=== PATIENT | female | born 1990 | race Caucasian/White ===

== ENCOUNTER → 2024-09-23 08:49 | Outpatient (REF) | payer OTHER, SELFPAY | LOC: HWRAD 08:49 | PROVIDERS: ATTENDING PHYSICIAN Advanced Practice Midwife | DX: R10.2 Pelvic and perineal pain (principal) | CPT/HCPCS: 76830; 76856 ==

== ENCOUNTER 2024-09-25 15:35 | Emergency (ER) | payer OTHER, SELFPAY ==
[2024-09-25 15:37] VITALS: BP 101/85
[2024-09-25 16:26] LABS: % Basophils 0.7 % (0-2); % Eosinophils 1.5 % (0-6); % Immature Granulocytes 0.2 % (0-0.5); % Lymphocytes 38.9 % (20.5-51.1); % Monocytes 9.8 % (1.7-9.3); % Neutrophils 48.9 % (42.2-75.2); Absolute Eosinophils 0.1 10^3/uL (0-0.7); Absolute Lymphocytes 2.4 10^3/uL (1.2-3.4); Absolute Monocytes 0.6 10^3/uL (0.1-0.6); Hematocrit 33.8 % (37.0-47.0); Hemoglobin 11.5 g/dL (12.0-16.0); Mean Corpuscular Hgb 28.3 pg (27.0-31.0); Mean Platelet Volume 10.5 fL (7.4-10.4); Nucleated Red Blood Cells % 0 %; Platelet Count 257 10^3/uL (130-400); Red Blood Cell Count 4.07 10^6/uL (4.20-5.40); Red Cell Dist. Width 15.3 % (11.5-14.5); White Blood Cell Count 6.1 10^3/uL (4.8-10.8)
[2024-09-25 16:41] LABS: HCG, Serum Qualitative Screen Negative
[2024-09-25 16:44] LABS: ALT (SGPT) 40 U/L (0-35); AST (SGOT) 37 U/L (14-36); Albumin 4.2 g/dl (3.5-5.0); Alkaline Phosphatase 67 U/L (38-126); Blood Urea Nitrogen 13 mg/dl (7-17); Calcium 9.1 mg/dl (8.4-10.2); Carbon Dioxide 24 mmol/L (22-30); Chloride 106 mmol/L (98-107); Glucose 98 mg/dl (70-99); Sodium 141 mmol/L (135-145); Total Bilirubin 0.2 mg/dl (0.2-1.3); Total Protein 7.1 g/dl (6.3-8.2); eGFR > 60.00
[2024-09-25 16:50] LABS: Troponin I < 0.012 ng/ml
--- NOTE | 2024-09-25 17:23 | ED.GENMED ---
History of Present Illness
General
Chief Complaint: Chest Problem
Time Seen by Provider: 09/25/24 17:22
History of Present Illness
History of Present Illness:
TIME OF INITIAL ENCOUNTER: 5:20 PM
HPI: The patient presents due to chest discomfort. She was at the gym, was getting off a leg machine and suddenly had chest pain described as pressure. This lasted for 1 minute. She had no other associated symptoms however she has been 'exhausted
related to poor sleep' due to young child. She also drinks a lot of caffeine.
EXAM:
GENERAL: Well appearing in no distress, very healthy in appearance, athletic build
HEENT: Moist oral mucosa
CARDIOVASCULAR: No murmurs, normal heart rate, regular rhythm, No chest wall tenderness
PULMONARY: No respiratory distress, breath sounds are clear and equal
ABDOMEN: Soft with no peritoneal signs, no tenderness
NEUROLOGIC: Excellent strength all extremities, no coordination deficits
PSYCHIATRIC: Appropriate mental status, normal insight and judgement
EXTREMITIES: Nontender, no edema, moves all extremities equally
SKIN: No rash, no lesions
NUMBER AND COMPLEXITY OF PROBLEMS ADDRESSED AT THE ENCOUNTER
� Chronic conditions affecting care: Other than plastic surgeries, no comorbidities, no diabetes, no high blood pressure, no hyperlipidemia, no family history of coronary disease
� Acute Exacerbation and/or Progression of Chronic Illness: This is an acute problem
� Differential Diagnosis includes: Musculoskeletal chest wall pain, anxiety, muscle spasm, highly doubt ACS, never had shortness of breath that would be consistent with PE
AMOUNT AND/OR COMPLEXITY OF DATA TO BE REVIEWED AND ANALYZED
� I performed an independent evaluation of and my interpretation is:
EKG:Sinus 62, normal axis, no acute ST abnormality
CT:
X-rays:
Laboratory Studies: Troponin less than 0.012, hCG negative, CBC and chemistries unremarkable except very mild anemia
Other:
� Review of other/old records: I reviewed records, the patient was here in July with her delivery
� Clinical information was obtained by an independent historian: I spoke to at bedside
� Prescriptions/Medications Considered but not given:
� Further testing considered but not performed:
RISK OF COMPLICATIONS AND/OR MORBIDITY OR MORTALITY OF PATIENT MANAGEMENT
� Social determinants of health affecting care: Lives at home
� Discussion with other providers:
� Escalation of care including admission/observation vs risk of discharge considered: EKG and troponin are normal. Minimal anemia noted but I doubt that this is contributing to exhaustion. She is very well-appearing. She has
had only 1 minute of symptoms earlier in the day and has had no symptoms since that time.
ANY OTHER UPDATES:
Phy Exam
Physical Exam
Physical Exam:
See HPI
Course
Orders/Labs/Results
Orders:
Orders
09/25/24 15:40
EKG [Electrocardiogram (*1)] Urgent
Reason for Study: Chest Pain
EKG- Treatment ONCE
09/25/24 16:07
Test Result ONCE
09/25/24 16:17
Complete Blood Count/With Diff Urgent
Comprehensive Metabolic Panel Urgent
HCG, Serum Qualitative Screen Urgent
Troponin I Urgent
Abnormal Lab Results
09/25/24
16:17
RBC 4.07 L 10^6/uL
(4.20-5.40)
Hgb 11.5 L g/dL
(12.0-16.0)
Hct 33.8 L %
(37.0-47.0)
RDW 15.3 H %
(11.5-14.5)
MPV 10.5 H fL
(7.4-10.4)
Monocytes % 9.8 H %
(1.7-9.3)
AST 37 H U/L
(14-36)
ALT 40 H U/L
(0-35)
09/25/24 16:17
09/25/24 16:17
Vital Signs
Initial and Last Documented VS:
Initial Vital Signs
Temp Pulse Resp BP Pulse Ox
98.2 F 67 16 101/85 100
09/25/24 15:37 09/25/24 15:37 09/25/24 15:37 09/25/24 15:37 09/25/24 15:37
Last Documented Vital Signs
Temp Pulse Resp BP Pulse Ox
98.2 F 67 16 101/85 100
09/25/24 15:37 09/25/24 15:37 09/25/24 15:37 09/25/24 15:37 09/25/24 15:37
*Critical Care Note
Total Time (30-74mins, 75-104mins- exclusive of procedures): Not Applicable
ED Attending Note
-
Portions of this chart may have been created with voice recognition software.� Occasional wrong word or��sound alike� substitutions may have occurred due to the inherent limitations of voice recognition software.
Discharge Plan
Departure
Patient Disposition: Home (Routine Discharge)
Date of Disposition: 09/25/24
Time of Disposition: 17:40
Patient with high blood pressure during this ER visit?: No
Discharge Problem:
Chest pain
Instructions: Chest Pain PCP Follow Up
Prescriptions:
No Action
Vitamin C:
1 tab PO DAILY
Vitamin D3 (cholecalciferol):
1 tab PO DAILY
Probiotic
250 tab PO ONCE
acetaminophen 325 mg Tablet
650 mg PO Q4HPRN PRN (Reason: mild pain) Qty: 20 0RF
ibuprofen 600 mg Tablet
600 mg PO Q6HPRN PRN (Reason: cramps) Qty: 20 0RF
Activity Restrictions/Additional Instructions:
Basic blood work is unremarkable, troponin is undetected, EKG is normal. Follow-up your primary care doctor
Interventions
Interventions:
*Risk Screen - Suicide Last Done: 09/25/24 15:37
*General Assessment Last Done: 09/25/24 15:37
*Neglect/Abuse Screening Last Done: 09/25/24 15:37
ED- Fall Risk Assessment Last Done: 09/25/24 17:44
*ED COVID-19 Vaccine History Last Done: 09/25/24 17:44
ED- Cardiac Assessment Last Done: 09/25/24 17:44
ED- Pulmonary Assessment Last Done: 09/25/24 17:44
Discharge Date and Time
Print Language: TANZANIAN
[2024-09-25 17:44] VITALS: BP 126/71; BMI 24.2
== END 2024-09-25 18:00 | disposition home or self-care (01) ==
LOC: EMR 15:35
PROVIDERS: EMERGENCY PHYSICIAN Emergency Medicine
DX: R07.89 Other chest pain (principal); D64.9 Anemia, unspecified
CPT/HCPCS: 99284; 80053; 84484; 84703; 85025; 93005

== ENCOUNTER → 2024-12-25 08:20 | Outpatient (REF) | payer OTHER, SELFPAY | LOC: HWRAD 08:20 | PROVIDERS: ATTENDING PHYSICIAN Advanced Practice Midwife; FAMILY PHYSICIAN Nurse Practitioner Primary Care | DX: N83.02 Follicular cyst of left ovary (principal) | CPT/HCPCS: 76830; 76856 ==

== ENCOUNTER → 2025-03-22 17:50 | Outpatient (REF) | payer OTHER, SELFPAY | LOC: RAD 17:50 | PROVIDERS: ATTENDING PHYSICIAN Obstetrics & Gynecology; FAMILY PHYSICIAN Nurse Practitioner Primary Care | DX: O26.851 Spotting complicating pregnancy, first trimester (principal) | CPT/HCPCS: 76801 ==

== ENCOUNTER 2025-03-26 12:45 | Day surgery (SDC) | payer OTHER, SELFPAY ==
[2025-03-26] VITALS (21 sets, daily range): BP systolic 87–101; BP diastolic 47–68; BMI 21.7
[2025-03-26 08:12] LABS: % Basophils 0.7 % (0-2); % Eosinophils 0.6 % (0-6); % Immature Granulocytes 0.1 % (0-0.5); % Lymphocytes 23.6 % (20.5-51.1); % Monocytes 9.9 % (1.7-9.3); % Neutrophils 65.1 % (42.2-75.2); Absolute Basophils 0.1 10^3/uL (0-0.2); Absolute Lymphocytes 1.6 10^3/uL (1.2-3.4); Absolute Monocytes 0.7 10^3/uL (0.1-0.6); Absolute Neutrophils 4.5 10^3/uL (1.4-6.5); Hematocrit 36.9 % (37.0-47.0); Hemoglobin 12.7 g/dL (12.0-16.0); Mean Corp Hgb Conc. 34.4 g/dL (33.0-37.0); Mean Corpuscular Hgb 29.7 pg (27.0-31.0); Mean Corpuscular Volume 86.4 fL (81.0-99.0); Mean Platelet Volume 10.3 fL (7.4-10.4); Nucleated Red Blood Cells % 0 %; Platelet Count 232 10^3/uL (130-400); Red Blood Cell Count 4.27 10^6/uL (4.20-5.40); Red Cell Dist. Width 13.9 % (11.5-14.5)
[2025-03-26 08:41] LABS: ALT (SGPT) 40 U/L (0-35); AST (SGOT) 28 U/L (14-36); Albumin 4.3 g/dl (3.5-5.0); Alkaline Phosphatase 69 U/L (38-126); Blood Urea Nitrogen 10 mg/dl (7-17); Calcium 8.9 mg/dl (8.4-10.2); Carbon Dioxide 21 mmol/L (22-30); Chloride 109 mmol/L (98-107); Estimated Creatinine Clearance 92 ml/min; Glucose 92 mg/dl (70-99); Potassium 4.4 mmol/L (3.5-5.1); Sodium 138 mmol/L (135-145); Total Bilirubin 0.7 mg/dl (0.2-1.3); eGFR > 60.00
--- NOTE | 2025-03-26 08:47 | ED.GENMED ---
History of Present Illness
General
Chief Complaint: Problems
Source: patient and spouse
Exam Limitations: none
Time Seen by Provider: 03/26/25 07:14
Nursing documentation reviewed up to this point in time: agreed with
History of Present Illness
History of Present Illness:
34-year-old female who presents to the emergency department due to vaginal bleeding since Saturday. She had blood work twice this week and showed her hCG levels were decreased. LMP February 08. She had an ultrasound that showed a gestational sac
without a visible fetus. This morning she may have passed out while going to the bathroom, and she had sharp pain.
Past History
Past History
ED Past Medical History: None
ED Past Surgical History: Other (Breast implants, reconstructive nasal surgery)
Social History
Tobacco: Non-smoker
Alcohol: None
Drug: None
Personal:
Living: with family
Review of Systems
Review of Systems
Allergies reviewed?: Yes
All Other Systems: Not applicable
Constitutional: Reports no symptoms
EENT: Reports no symptoms
Respiratory: Reports no symptoms
Cardiac: Reports syncope; Denies chest pain
ABD/GI: Reports no symptoms
: Reports bleeding (Vaginal) and other (Pelvic pain)
Musculoskeletal: Reports no symptoms
Skin: Reports no symptoms
Neurological: Reports no symptoms
Endocrine: Reports no symptoms
Hematologic/Lymphatic: Reports no symptoms
Psychiatric: Reports no symptoms
Phy Exam
Physical Exam
Physical Exam:
Physical Exam
General: no apparent distress, not acutely ill
Neck: supple. no meningeal signs. normal posterior pharynx
Heart: s1/s2 regular rate and rhythm, no murmur. equal radial
pulses.
HEENT: Pupils equal round reactive to light, EOMI
Lungs: no acute respiratory distress. clear bilaterally
Abdomen: normal bowel sounds. not tender. no CVAT
Neuro: alert and oriented. no focal neurological deficits
Skin: no rash
Psychiatric: well kept. interactive and cooperative
Extremities: no edema. no calf tenderness. negative homans. good distal pulses
Course
Orders/Labs/Results
Orders:
Orders
03/26/25 07:07
EKG [Electrocardiogram (*1)] Urgent
Reason for Study: Syncope
03/26/25 07:08
EKG- Treatment ONCE
03/26/25 07:16
US Transvaginal Only Urgent
Comment: for placement services
Reason For Exam: pelvic pain, bleeding, early
03/26/25 07:17
IV Insert/Care/Rem.- Treatment PRN
03/26/25 07:58
Beta HCG Quantitative Urgent
Is this a screen?: No
Complete Blood Count/With Diff Urgent
Comprehensive Metabolic Panel Urgent
03/26/25 Lunch
NPO
Allow oral meds: Yes
Allow clear liquids: No
03/26/25 12:11
HYDROmorphone [Dilaudid] 0.25 mg IV PACU-Q5MPRN PRN
HYDROmorphone [Dilaudid] 0.5 mg IV PACU-Q5MPRN PRN
Meperidine [Demerol] 12.5 mg IV PACU-Q5MPRN PRN
Ondansetron Injectable [Zofran] 4 mg IV PACU-ONCEPRN PRN
Prochlorperazine [Compazine] 5 mg IV PACU-ONCEPRN PRN
Notify MD As Directed
Notify physician if: for SDS patients with known or suspected sleep obstructive sleep apnea, monitor in the
PACU.
Notify MD for any apneic/desaturation episodes
O2 Therapy [RESP] Urgent
Titrate/Wean O2 to maintain O2 sat greater than (%): 92
Special Instructions: -Provide supplemental oxygen to achieve O2 sat of 92% or greater.
-After 15 min, may wean O2 and discontinue if patient is able to maintain O2 sat of 92%
or greater during recovery period.
If patient is a discharge home, without oxygen therapy, notify anestheiologist if
unable to maintain O2 SAT of 92% or greater on room air for MD clearance.
03/26/25 12:15
Normosol (Mult Electrolytes) [Normosol-R/Plasmalyte-A] 1,000 ml IV PER PROTOCOL
Normosol (Mult Electrolytes) [Normosol-R/Plasmalyte-A] 1,000 ml IV PER PROTOCOL
03/26/25 12:17
Doxycycline Hyclate [Vibramycin] 200 mg 0.9% Sodium Chloride 250 ml [Nss] 250 ml IV PRE OP
03/26/25 12:19
Fentanyl Citrate/Pf [Sublimaze] 100 mcg .ROUTE .STK-MED ONE
Midazolam HCl [Versed] 2 mg .ROUTE .STK-MED ONE
03/26/25 12:30
0.9% Sodium Chloride 1000 ml [Nss] 1,000 ml IV 125 mls/hr
03/26/25 12:46
HYDROmorphone [Dilaudid] 0.25 mg IV PACU-Q5MPRN PRN
HYDROmorphone [Dilaudid] 0.5 mg IV PACU-Q5MPRN PRN
Meperidine [Demerol] 12.5 mg IV PACU-Q5MPRN PRN
Ondansetron Injectable [Zofran] 4 mg IV PACU-ONCEPRN PRN
Prochlorperazine [Compazine] 5 mg IV PACU-ONCEPRN PRN
03/26/25 13:00
Flush (0.9% Sodium Chloride) [Flush (Nss)] See Dose Instructions IV PER PROTOCOL
03/26/25 13:03
OR Frozen Section Stat
Pre-Operative Diagnosis: OF UNKNOWN LOCATION
Operative Procedure: D&E
Surgeon: DEFOUR
Circulating Nurse: JULIUS
Type of Anesthesia: General
OR Room: [facility] - [phone]
Comment: PLEASE TIGER TEXT DEFOUR WITH RESULTS
Time: 13:05
Frozen Section: [employer]ION
03/26/25 13:09
Dexamethasone Sod Phosphate [Decadron] 20 mg .ROUTE .STK-MED ONE
Ondansetron Injectable [Zofran] 4 mg .ROUTE .STK-MED ONE
Propofol [Diprivan] 20 ml .ROUTE .STK-MED
03/26/25 13:10
Lidocaine HCl/Pf [Xylocaine-Mpf 1% Vial] 50 mg .ROUTE .STK-MED ONE
Abnormal Lab Results
03/26/25
07:58
Hct 36.9 L %
(37.0-47.0)
Absolute Monos (auto) 0.7 H 10^3/uL
(0.1-0.6)
Monocytes % 9.9 H %
(1.7-9.3)
Chloride 109 H mmol/L
(98-107)
Carbon Dioxide 21 L mmol/L
(22-30)
ALT 40 H U/L
(0-35)
03/26/25 07:58
03/26/25 07:58
Vital Signs
Initial and Last Documented VS:
Initial Vital Signs
Temp Pulse Resp BP Pulse Ox
98.3 F 73 16 101/68 98
03/26/25 07:03 03/26/25 07:03 03/26/25 07:03 03/26/25 07:03 03/26/25 07:03
Last Documented Vital Signs
Temp Pulse Resp BP Pulse Ox
98.2 F 69 14 90/51 100
03/26/25 13:15 03/26/25 13:19 03/26/25 13:19 03/26/25 13:19 03/26/25 13:19
Information
Weeks gestation: Weeks: (6)
Location: Location: (unclear if IUP vs ectopic)
MDM/Problems Addressed
Differential Diagnosis Includes:
Ectopic , missed
MDM/Problems Addressed:
34-year-old female with likely ectopic , taken to the OR by Dr. Dang. Stable.
*Radiology
Radiology exam reviewed: radiology read reviewed (Ultrasound pelvis shows possible ectopic )
*Pulse Oximetry
Patient hypoxic: no
*EKG
Interpreted by ED Provider?: Yes
EKG Intrepretation Date: 03/26/25
EKG Intrepretation Time: 07:10
Interpretation: normal
Comparison EKG: no comparison EKG present
Heart Rate: 62
Rate: normal
Rhythm: sinus
[place]: normal axis
Interval: normal interval
QRS Pattern: normal QRS
Ischemia: no ischemia
*Handle Sewer Interpretation
Rate: Handle Sewer- N/A
*Critical Care Note
Total Time (30-74mins, 75-104mins- exclusive of procedures): Not Applicable
Patient Management
Social determinants of health affecting care: Living situation
Discussion with other providers: Porcelain Enamel Repairer (KNOWLEDGE ARCHITECT)
Escalation/DeEscalation of care consider admission/obs:
admit to OR indicated
ED Attending Note
-
Portions of this chart may have been created with voice recognition software.� Occasional wrong word or��sound alike� substitutions may have occurred due to the inherent limitations of voice recognition software.
Discharge Plan
Departure
Patient Disposition: OR
Admit to: OR
Presentation/result/management discussed w/ accepting MD/DO: Dr. Dang
Patient with high blood pressure during this ER visit?: No
Condition: Good
Discharge Problem:
Ectopic
Interventions
Interventions:
*Risk Screen - Suicide Last Done: 03/26/25 07:03
*General Assessment Last Done: 03/26/25 07:56
*Neglect/Abuse Screening Last Done: 03/26/25 07:03
*ED- Fall Risk Assessment Last Done: 03/26/25 12:13
*Nursing Disposition Last Done: 03/26/25 12:13
ED-Female Genitourinary Assessment Last Done: 03/26/25 08:09
Discharge Date and Time
Discharge Date/Time: 03/26/25 12:14
[2025-03-26 09:21] LABS: Beta HCG Quantitative 69.69 mIU/ml
--- NOTE | 2025-03-26 11:55 | EDRN ---
Karol DeFour to bedside to speak with pt and her about their decision on plan of care. Will opt for the D & E and will remain NPO and wait for OR to call for pt. Fluids started.
[2025-03-26] MEDS: NORMOSOL-R/PLASMALYTE-A 1000 IV (14:23)
[2025-03-26] MEDS: METHOTREXATE 1.57 MG IM ×2 (15:27→15:30)
--- NOTE | 2025-03-26 22:16 | HP.FOC2 ---
Focused History & Physical
Chief Complaint
HPI:
Chief Complaint: Bleeding and Syncopal episode
HPI / Indication for Planned Procedure: 34yo who should be approx 7wks presented to the ER today with c/o increased VB and intense cramping/pain in the RLQ followed by a brief syncopal episode when she was on the toilet. She has a
h.o SAB and was being followed with HCGs in the office, she then noticed onset of bleeding on 03/22 and had an urgent outpatient US showing a tiny cystic structure in endometrium ?small GS. She was advised to continue to trend her HCG, which have
started to decrease however overnight she noticed increased bleeding and intense cramping she took ibuprofen and was able to fall asleep but at 530am says pain in the RLQ woke her up from sleep. She went to the bathroom to sit on the toilet and her
heard a thud and found her on the floor. Patient believes she fainted. They then presented to the hospital. No n/v. feels generally weak and dizzy. her pain has no resolved and has bloody mucous vaginal discharge
Relevant Past Medical History: Other (Depression)
Relevant Social History: Negative
Relevant Family History: Positive for (Paternal Aunt- Breast CA, Liver CA-MGF)
Relevant Past Surgical History: Positive for (Breast Implants, Nose reconstruction, C/S, D&E)
Review of Systems
Review of Pertinent Systems: All Systems Negative
Medication
See Medication form for detailed medications: Yes
Medication List (including Herbals & OTC):
Vitamin C: 1 tab PO DAILY 05/16/22
Vitamin D3 (cholecalciferol): 1 tab PO DAILY 05/16/22
Probiotic 250 tab PO ONCE 08/09/23
acetaminophen 325 mg tablet 650 mg (2 x 325 mg) PO Q4HPRN PRN mild pain #20 tabs 08/12/23
ibuprofen 600 mg tablet 600 mg PO Q6HPRN PRN cramps #20 tabs 08/12/23
Medications Reviewed: Yes
Allergies and Reactions
Patient has Allergies: No
Noted Allergies and Reactions:
Allergy/AdvReac Type Severity Reaction Status Date / Time
No Known Allergies Allergy Verified 03/26/25 07:03
Pertinent Physical Exam
All Other Systems: Negative
Abdomen: Normal (No r/g no significant ttp)
Other: SVE: no CMT, no adnexal masses/ttp appreciated.
Diagnosis / Assessment
34yo with of Unknown Location
Plan / Procedure
We discussed her Pelvic US report and reviewed that it is essentially unchanged from a few days prior. I also reviewed her HCGs from [facility]. HCG in today is less but it is not as accurate to compare results from different labs. My concern is
that her HCGs from [facility] seem to be plateauing 98-92. Advised this is definitely not a normal and there is concern for a of unknown location or ectopic. I reviewed various options for mgmt. 1. Laparoscopy in the event that the
left ovarian cyst could be an ectopic , however my concern for this is low and I advised unless there was an obvious abnormality/dilation of the tube or active bleed from the ovary, then I would not want to remove anything at the risk of
removing a normal tube/ovary. 2.MTX- reviewed how the medication works and possible side effects as well as close monitoring of HCGs that is needed with this. 3. D&E with frozen section. The cystic structure in the endometrium could be a small GS so
explained this could be just an abnormal IUP. advised there is limitation to the frozen section and villi may not initiailly be seen now, but may be seen on final evaluation. however, if none seen now then would recommend proceeding immediately with
MTX therapy for of unknown location, rather than waiting for final path report.
Patient ultimately decided to do option 3.
Consents were reviewed including risks of the D&E
Doxycycline 200mg Iv ordered
NPO/IVF
60mins spent with patient, review of images, documentation and care coordination
Anesthesia/Sedation to be done by Anesthesia Provider: Yes
Vital Signs and Labs
-
Vital Signs and Labs:
Vital Signs
Temp Pulse Resp BP Pulse Ox
98.1 F 79 18 92/56 100
03/26/25 15:30 03/26/25 16:00 03/26/25 16:00 03/26/25 16:00 03/26/25 16:00
Lab Results
03/26/25 07:58
03/26/25 07:58
Sodium 138 mmol/L (135-145) 03/26/25 07:58
Potassium 4.4 mmol/L (3.5-5.1) 03/26/25 07:58
BUN 10 mg/dl (7-17) 03/26/25 07:58
Glucose 92 mg/dl (70-99) 03/26/25 07:58
Calcium 8.9 mg/dl (8.4-10.2) 03/26/25 07:58
[facility] HCGs
03/11- 49
03/15: 112
03/23: 98
03/25:92
DH HCG today:69.6
Imaging Data
-
Pelvic US:
Uterus 6.4x 3.5x 5.4cm tiny 2mm fluid vs gestational sac in the endometrial canal unchanged from 03/22. right ovary 2.5cm multiple peripheral follicles. Let ovary 3.7cm witha 1.7cm complex mass also similar to 03/22. Corpus luteal or hemorrhagic
cyst, vs left ovarian ectopic
--- NOTE | 2025-03-26 23:10 | W.PN.UPDATE ---
Update Note
Progress Note Update
Late Entry:
received TT from Pathologist shortly after the procedure stating no villi seen. I therefore informed and patient of this. I explained that MTX is indicated due to PUL. I provided her with information on side effects and what to avoid while
on MTX. Provided her with script for repeat HCG and wrote down the days she should have these done.
== END 2025-03-26 16:15 | disposition home or self-care (01) ==
LOC: PACU 12:45
PROVIDERS: ATTENDING PHYSICIAN Obstetrics & Gynecology; EMERGENCY PHYSICIAN Emergency Medicine; FAMILY PHYSICIAN Nurse Practitioner Primary Care
DX: O46.91 Antepartum hemorrhage, unspecified, first trimester (principal); N85.4 Malposition of uterus; N85.8 Other specified noninflammatory disorders of uterus
CPT/HCPCS: 59820; 88305; 88332; 76817; 80053; 84702; 85025; 88331; 93005; 99285; J9260

== ENCOUNTER → 2025-10-06 10:00 | Outpatient (REF) | payer OTHER, SELFPAY | LOC: RAD 10:00 | PROVIDERS: ATTENDING PHYSICIAN Obstetrics & Gynecology; FAMILY PHYSICIAN Nurse Practitioner Primary Care | DX: O36.80X0 Pregnancy with inconclusive fetal viability, not applicable or unspecified (principal) | CPT/HCPCS: 76801; 76817 ==

== ENCOUNTER 2025-11-05 13:23 | Observation (INO) | payer OTHER, SELFPAY ==
[2025-11-05] VITALS (7 sets, daily range): BP systolic 91–116; BP diastolic 58–80; BMI 23.4
[2025-11-05 11:57] LABS: Hematocrit 36.7 % (37.0-47.0); Hemoglobin 12.6 g/dL (12.0-16.0); Mean Corp Hgb Conc. 34.3 g/dL (33.0-37.0); Mean Corpuscular Volume 86.2 fL (81.0-99.0); Nucleated Red Blood Cells % 0 %; Platelet Count 269 10^3/uL (130-400); Red Cell Dist. Width 13.2 % (11.5-14.5)
[2025-11-05] MEDS: NSS 1000 IV ×2 (11:58→15:11)
[2025-11-05 12:18] LABS: ALT (SGPT) 16 U/L (0-35); AST (SGOT) 19 U/L (14-36); Albumin 2.6 g/dl (3.5-5.0); Alkaline Phosphatase 53 U/L (38-126); Blood Urea Nitrogen 5 mg/dl (7-17); Calcium 6.2 mg/dl (8.4-10.2); Carbon Dioxide 15 mmol/L (22-30); Chloride 117 mmol/L (98-107); Estimated Creatinine Clearance 106 ml/min; Glucose 78 mg/dl (70-99); Lipase 70 U/L (23-300); Potassium 2.9 mmol/L (3.5-5.1); Sodium 135 mmol/L (135-145); Total Protein 5.2 g/dl (6.3-8.2); eGFR > 60.00
--- NOTE | 2025-11-05 12:42 | HPS.HSE ---
Addendum entered and electronically signed by Janell Weiss MD 11/05/25 23:33:
BUCKLE ATTACHING MACHINE OPERATOR recommended Reglan for nausea. Single dose of Toradol was acceptable.BUCKLE ATTACHING MACHINE OPERATOR recommended Reglan for nausea. Single dose of Toradol was acceptable.BUCKLE ATTACHING MACHINE OPERATOR recommended Reglan for nausea. Single dose of Toradol was acceptable.
Addendum entered and electronically signed by Janell Weiss MD 11/05/25 14:39:
This is an addendum to H&P written by Guera Sawant on 11/05/2025. �Patient seen and examined independently with PAYING TELLER.
35-year-old female who is 9 weeks past medical history of depression, ectopic here for vomiting and diarrhea, generalized abdominal pain, lightheadedness and dizziness starting today. �Her and baby also diarrhea. �No fever.
Vital signs unremarkable.
EKG shows normal sinus rhythm.
Labs show calcium 6.2. �Bicarb of 15. �Potassium 2.9. Magnesium 1.3.�
Patient with likely viral gastroenteritis with resulting hypokalemia, hypocalcemia, hypomagnesemia, and metabolic acidosis. �N.p.o., check stool studies, IV fluids, potassium and calcium repletion. Pharmacy recommended against Magnesium and Bicarb
administration.� OB consulted.�
Original Note:
Family Physician
-
Family Physician:
Chief Complaint
-
n,v,d
History of Present Illness
35 year old with PMh for ectopic , depression presented to us nausea, vomiting and diarrhea. she had multiple episodes of vomiting and diarrhea since this morning 5 am. she is complained of generalized abdominal pain. she is dizzy and not
able to move. denied RODRIGUEZ,fever, chills, chest pain, sob. denied cough. denied dysuria or hematuria. her daughter was sick with same symptoms as well as her . patient is 9 weeks
she was noted to have electrolyte imbalance. giving iv kcl and calcium gluconate.admitting for further management.
Medical History
Past Medical History
Past Medical History: Reports Other
Additional Past Medical History:
depression, ectopic
Past Surgical History: Reports Other
Additional Past Surgical History:
breast augmentation
nose surgery D&E surgery
Social History
Tobacco: Non-smoker
Alcohol: Occasional
Drug: None
Personal:
Living: With Family
Family History
Family History: Not pertinent
Allergies / Home Medications
Allergies reflects when Allergies were last updated in [facility].
Home Medications with original date entered in [facility]
Allergy/Medication List:
Allergies
Allergy/AdvReac Type Severity Reaction Status Date / Time
No Known Allergies Allergy Verified 11/05/25 11:38
Home Medications
Vitamin C: 1 tab PO DAILY 05/16/22
Vitamin D3 (cholecalciferol): 1 tab PO DAILY 05/16/22
Probiotic 250 tab PO ONCE 08/09/23
acetaminophen 325 mg tablet 650 mg (2 x 325 mg) PO Q4HPRN PRN mild pain #20 tabs 08/12/23
ibuprofen 600 mg tablet 600 mg PO Q6HPRN PRN cramps #20 tabs 08/12/23
Review of Systems
-
Constitutional: Reports No Symptoms
EENT: Reports No Symptoms
Respiratory: Reports No Symptoms
Cardiac: Reports No Symptoms
Abdomen/GI: Reports Abdominal Pain, Nausea, Vomiting and Diarrhea
: Reports No Symptoms
Musculoskeletal: Reports No Symptoms
Skin: Reports No Symptoms
Neurological: Reports No Symptoms
Endocrine: Reports No Symptoms
Hematologic/Lymphatic: Reports No Symptoms
Psych: Reports No Symptoms
Physical Exam
Vital Signs
Vital Signs
Temp Pulse Resp BP Pulse Ox
98.2 F 70 23 106/62 100
11/05/25 11:39 11/05/25 12:02 11/05/25 12:02 11/05/25 12:12 11/05/25 12:15
Physical Exam
General: Well Developed, Well Nourished and No Apparent Distress
HEENT: NormoCephalic, Moist mucous membranes and Atraumatic
Respiratory: Clear
Cardiac: S1/S2 and Regular Rhythm; No Murmur or Rub
GI: Soft, Non Tender, Non Distended and Normal Bowel Sounds; No Organomegaly
Rectal: Deferred by Provider
Musculoskeletal: No Clubbing, No Cyanosis and No Edema
Skin: No Rash
Neuro: AO x 3 and Nonfocal/grossly intact
Psych: Calm
Laboratory Results
-
11/05/25 11:46
11/05/25 11:46
Laboratory Results
Total Bilirubin 0.2 mg/dl (0.2-1.3) 11/05/25 11:46
AST 19 U/L (14-36) 11/05/25 11:46
ALT 16 U/L (0-35) 11/05/25 11:46
Alkaline Phosphatase 53 U/L (38-126) 11/05/25 11:46
Lipase 70 U/L (23-300) 11/05/25 11:46
Data Reviewed
-
Lab Data: Labs Reviewed by me
Impression/Plan
-
#Hypokalemia, hypocalcemia secondary to nausea vomiting diarrhea from gastroenteritis.
#metabolic acidosis secondary to dehydration
- Replating with IV KCl, calcium
- Continue to monitor
-K2.9, CO2 15, creatinine, calcium 6.2, mag 1.3
-mag rider order
-clear liquid diet
-stool for culture
-obtain mag
-BMP in am
-gave a dose of B6 in ER for n/v
-will hold sodium bicarb and magnesium as it is not safe to give during d/w pharmcist.
#9 week
-OB consulted
#DVT prophylaxis
-scd
#CODE status
-full code
[2025-11-05 13:03] LABS: Magnesium 1.3 mg/dl (1.6-2.3)
[2025-11-05] MEDS: CALCIUM GLUCONATE 130 MG IV (13:04)
[2025-11-05] MEDS: OFIRMEV 100 IV (13:41)
[2025-11-05] MEDS: KCL 270 MEQ IV (14:07)
[2025-11-05] MEDS: VITAMIN B-6 100 MG IM (15:10)
[2025-11-05] MEDS: TORADOL 15 MG IV (16:24)
--- NOTE | 2025-11-05 16:31 | ED.GENMED ---
History of Present Illness
General
Chief Complaint: Abdominal Symptoms
Source: patient and family
Exam Limitations: none
Time Seen by Provider: 11/05/25 11:42
Nursing documentation reviewed up to this point in time: agreed with
History of Present Illness
History of Present Illness:
Note:
CHIEF COMPLAINT(S)
Nausea and inability to sleep.
HISTORY OF PRESENT ILLNESS
The patient is a 35-year-old female who presents with nausea and an inability to sleep. She reports feeling nauseous and has not vomited, but was administered ondansetron (Zofran) on the way to the hospital, which did not alleviate her symptoms. She
started experiencing a significant discomfort around 5 PM and experienced difficulty lying flat for an extended period, contributing to her inability to sleep since midnight. She denies any vaginal bleeding. The patient believes her current nausea
may be related to her , as she is and has had an ultrasound at the [facility] associated with this hospital.
PAST MEDICAL AND SURIGICAL HISTORY
The patient reports a history of prior pregnancies. She has been four times and has one living daughter. She mentions having had a miscarriage.
MEDICATIONS
The patient is currently taking vitamins but did not take them today.
PHYSICAL EXAM
General: The patient appears alert but in discomfort, no signs of acute distress.
Skin: Warm, dry.
Head: Normocephalic, atraumatic.
Neck: Supple, trachea midline.
Eye, Ears, Nose, Mouth, and Throat: Oral mucosa moist.
Cardiovascular: Normal peripheral perfusion, no edema.
Respiratory: Respirations are non-labored.
Gastrointestinal: No vomiting reported.
Back: Normal range of motion, normal alignment.
Musculoskeletal: Normal range of motion, normal strength.
Neurological: Alert and oriented to person, place, time, and situation. No focal neurological deficit observed.
Psychiatric: Cooperative, appropriate mood and affect.
PLAN
1. Administer intravenous fluids to address potential dehydration and to help alleviate nausea.
2. Monitor the patients symptoms and assess further needs for antiemetic treatment.
3. Follow up with obstetrics for further evaluation related to .
4. Provide supportive care to enhance comfort and address the inability to sleep.
DIFFERENTIAL DIAGNOSIS
The Differential Diagnosis includes, in no particular order and is not limited to:
1. Hyperemesis gravidarum
2. Gastroenteritis
3. Gastroesophageal reflux disease (GERD)
4. Peptic ulcer disease
5. Hepatitis
6. Cholecystitis
7. Pancreatitis
8. -induced nausea and vomiting
9. Urinary tract infection
10. Appendicitis
EKG
My independent EKG interpretation is:
- Time of EKG: [Not provided]
- Rhythm: Normal sinus rhythm
- Heart Rate: 70 beats per minute
- [place] Interval: [Not provided]
- QRS Duration: [Not provided]
- QT Interval: [Not provided]
- [place]: Normal
- Abnormalities Observed: None, normal EKG
Disposition:
SUMMARY OF ENCOUNTER
The patient, a 35-year-old female, was seen in the emergency department due to nausea and vomiting. Based on the presentation and lab results, hypokalemia, hypomagnesemia, and other electrolyte imbalances were identified.
DISPOSITION
Admit to a hospitalist for electrolyte repletion.
ASSESSMENT
The patient is presenting with multiple electrolyte imbalances, including hypokalemia and hypomagnesemia, in the context of nausea and vomiting related to her .
MANAGEMENT OF THE PATIENTS CARE WAS DISCUSSED WITH
The case was discussed with the hospitalist team for further management and admission.
PLAN
1. Admit to the hospitalist service for further evaluation and management.
2. Replete electrolytes as needed under inpatient care.
3. Monitor for any further complications associated with electrolyte imbalances.
4. Follow-up with obstetrics to evaluate any potential impact on .
INDEPENDENT REVIEW OF LABS AND INTERPRETATION OF TESTS
My independent review indicates multiple electrolyte imbalances, with findings consistent with hypokalemia and hypomagnesemia.
FOLLOW-UP INSTRUCTIONS
Follow-up with obstetrics after discharge to ensure proper management of the and any potential impact from the electrolyte imbalances.
MEDICATION RECONCILIATION
- Ondansetron orally disintegrating tablet (Zofran) was administered en route to alleviate nausea but was ineffective.
- vitamins were not taken today by the patient.
MEDICAL DECISION MAKING
- Complexity of Data Reviewed: Chronic conditions affecting care include prior pregnancies and associated complications.
- Data:
Category 1
Non-emergency department records reviewed, including prior obstetric care and outpatient records.
My independent interpretation of EKG indicates normal sinus rhythm and no abnormalities.
- Risk:
Due to the electrolyte imbalances and the complexity of the patient being , admission for observation and intervention is necessary.
DIAGNOSIS
- Hypokalemia (E87.6)
- Hypomagnesemia (E83.42)
-Hypocalcemia
- Nausea with vomiting in , first trimester (O21.0)
Past History
Past History
ED Past Medical History: None
ED Past Surgical History: Other (Breast implants, reconstructive nasal surgery)
Social History
Tobacco: Non-smoker
Alcohol: None
Drug: None
Personal:
Living: with family
Phy Exam
Physical Exam
Physical Exam:
.
Course
Orders/Labs/Results
Orders:
Orders
11/05/25 Breakfast
Clear Liquid
At Your Request: Full Participation
Does patient need a safe tray?: No
11/05/25 11:42
IV Insert/Care/Rem.- Treatment PRN
Urinalysis Reflex To Culture Urgent
0.9% Sodium Chloride 1000 ml [Nss] 1,000 ml IV BOLUS
11/05/25 11:46
Complete Blood Count/With Diff Urgent
Comprehensive Metabolic Panel Urgent
Lipase Urgent
Magnesium Urgent
Comment: ADD ON
11/05/25 12:20
Electrocardiogram (*1) Urgent
Reason for Study: Other
Other Reason for Exam: hypocalcemia
11/05/25 12:21
Add On- LAB Urgent
Tests Added?: magnesium
Potassium Chloride [KCl] 40 meq 0.9% Sodium Chloride 250 ml [Nss] 250 ml IV NOW
11/05/25 12:29
Calcium Gluconate 3,000 mg Dextrose 5%/Water 100 ml [D5w] 100 ml IV ONCE
11/05/25 12:34
Potassium Chloride [KCl] 40 meq 0.9% Sodium Chloride 250 ml [Nss] 250 ml IV NOW
11/05/25 12:55
Acetaminophen [Tylenol] 650 mg PO NOW STA
11/05/25 12:[address] GRADER OPERATOR [ROAD GRADER OPERATOR CONSULT] Routine
Consulting Provider: Nancy Coello
Was physician already notified: Yes
11/05/25 13:00
Calcium Gluconate 3,000 mg Dextrose 5%/Water 100 ml [D5w] 100 ml IV ONCE
11/05/25 13:02
Pyridoxine [Vitamin B-6] 50 mg PO NOW STA
Sodium Bicarbonate 50 meq IV NOW STA
11/05/25 13:06
Admit/Transfer Patient As Directed
Co-Sign Provider:
Level of Care: Observation services
Assign to:: Telemetry
Physician / Group: elsie
Diagnosis: gastroenteritis
Reason for Telemetry: Other
Other Reason for Telemetry: electrolyte imbalance
Date to Stop Telemetry: 11/07/25
Time to Stop Telemetry: 11:00
PRN Pain Medication Management As Directed
May give lesser potent ordered pain med per pt: Yes
preference::
Protocol:: Medication orders for pain may be administered in a
manner that supports deferring to patient preference
when the pt is:
- Requesting an ordered lesser potent pain medication.
Least to most potent pain medications are defined
as: acetaminophen < NSAID < tramadol < opioids
(morphine, oxycodone, hydromorphone).
- Requesting a lesser dose of the same medication IF
ORDERED.
- Requesting a less intrusive route of administration
if both routes are prescribed by the provider (PO <
IV).
11/05/25 13:07
Code Status As Directed
Resuscitation Status: Full Code
11/05/25 13:11
Pyridoxine [Vitamin B-6] 100 mg IM ONCE ONE
11/05/25 13:12
Magnesium Sulfate 2 Gram/50 ml [Magnesium Sulfate] 2 gram in 50 ml IV NOW
11/05/25 13:15
Acetaminophen 1000MG/100Ml [Ofirmev] 1,000 mg in 100 ml IV ONCE
Acetaminophen IV Indication:: No [place] & No Enteral Access
11/05/25 14:24
0.9% Sodium Chloride 1000 ml [Nss] 1,000 ml IV 80 mls/hr
Acetaminophen [Tylenol] 650 mg PO Q6HPRN PRN
11/05/25 14:24
Activity As Directed
Activity Level: As Tolerated
Venous Foot Pumps As Directed
Location: Bilateral feet
Vital Signs As Directed
Frequency: Per unit guidelines
DX Deep Vein Thrombosis Video Routine
11/05/25 15:23
C difficile Antigen & Toxins Urgent
MARTIN Source: Feces/Stool
Specimen Description:
Date Specimen was Collected: 11/05/25
Time Specimen was Collected: 15:16
Norovirus by PCR Stat
MARTIN Source: Feces/Stool
Specimen Description:
Date Specimen was Collected: 11/05/25
Time Specimen was Collected: 15:16
Stool Culture Routine
MARTIN Source: Feces/Stool
Specimen Description:
Date Specimen was Collected: 11/05/25
Time Specimen was Collected: 15:16
Stool For WBC Stat
MARTIN Source: Feces/Stool
Specimen Description:
Date Specimen was Collected: 11/05/25
Time Specimen was Collected: 15:16
11/06/25 06:00
Basic Metabolic Panel IN AM
Complete Blood Count/No Diff IN AM
Magnesium IN AM
11/07/25 11:00
DC Protocol for Telemetry ONCE
Abnormal Lab Results
11/05/25
11:46
Hct 36.7 L %
(37.0-47.0)
Absolute Neuts (auto) 9.3 H 10^3/uL
(1.4-6.5)
Absolute Lymphs (auto) 0.8 L 10^3/uL
(1.2-3.4)
Neutrophils % 86.8 H %
(42.2-75.2)
Lymphocytes % 7.9 L %
(20.5-51.1)
Potassium 2.9 L mmol/L
(3.5-5.1)
Chloride 117 H mmol/L
(98-107)
Carbon Dioxide 15 L mmol/L
(22-30)
BUN 5 L mg/dl
(7-17)
Creatinine 0.3 L mg/dL
(0.6-1.0)
Calcium 6.2 L* mg/dl
(8.4-10.2)
Magnesium 1.3 L mg/dl
(1.6-2.3)
Total Protein 5.2 L g/dl
(6.3-8.2)
Albumin 2.6 L g/dl
(3.5-5.0)
11/05/25 11:46
11/05/25 11:46
Vital Signs
Initial and Last Documented VS:
Initial Vital Signs
Temp Pulse Resp BP Pulse Ox
98.2 F 61 18 116/60 100
11/05/25 11:39 11/05/25 11:39 11/05/25 11:39 11/05/25 11:39 11/05/25 11:39
Last Documented Vital Signs
Temp Pulse Resp BP Pulse Ox
98.3 F 65 16 108/80 100
11/05/25 14:37 11/05/25 14:37 11/05/25 14:37 11/05/25 14:37 11/05/25 16:33
*Pulse Oximetry
SaO2: 100
Oxygen Mode of Delivery: Room air
Patient hypoxic: no
*Critical Care Note
Total Time (30-74mins, 75-104mins- exclusive of procedures): Not Applicable
ED Attending Note
-
Portions of this chart may have been created with voice recognition software.� Occasional wrong word or��sound alike� substitutions may have occurred due to the inherent limitations of voice recognition software.
Discharge Plan
Departure
Patient Disposition: Admit
Date of Disposition: 11/05/25
Time of Disposition: 12:29
Admit to: Telemetry
Presentation/result/management discussed w/ accepting MD/DO: Hospitalist
Patient with high blood pressure during this ER visit?: No
Condition: Good
Discharge Problem:
Hypocalcemia, Acute hypokalemia, Nausea, vomiting, and diarrhea
Interventions
Interventions:
*Risk Screen - Suicide Last Done: 11/05/25 11:39
*General Assessment Last Done: 11/05/25 11:39
*Neglect/Abuse Screening Last Done: 11/05/25 11:39
*ED COVID-19 Vaccine History Last Done: 11/05/25 11:39
*ED Influenza Vaccine History Last Done: 11/05/25 11:39
[facility] Fall Risk Assessment Tool Last Done: 11/05/25 11:37
*Nursing Disposition Last Done: 11/05/25 14:19
IM-Mfnucd-Splmpiryrk Assessment Last Done: 11/05/25 12:25
Discharge Date and Time
Discharge Date/Time: 11/05/25 14:19
[2025-11-05] MEDS: TYLENOL 650 MG PO (20:18)
[2025-11-05 22:04] LABS: Urine Character Clear (Clear)
[2025-11-05 22:16] LABS: Urine Red Blood Cell 0-2 /HPF (0-2); Urine Urothelial Cell 0-2 /LPF (FEW)
[2025-11-06] MEDS: NSS 1000 IV (02:45)
[2025-11-06 03:00] VITALS: BP 98/53
[2025-11-06 07:45] VITALS: BP 94/48
[2025-11-06 07:57] LABS: Hematocrit 31.7 % (37.0-47.0); Hemoglobin 11.2 g/dL (12.0-16.0); Mean Corp Hgb Conc. 35.3 g/dL (33.0-37.0); Mean Corpuscular Volume 86.6 fL (81.0-99.0); Platelet Count 248 10^3/uL (130-400); Red Cell Dist. Width 13.2 % (11.5-14.5)
[2025-11-06 08:33] LABS: Blood Urea Nitrogen 6 mg/dl (7-17); Calcium 8.3 mg/dl (8.4-10.2); Carbon Dioxide 19 mmol/L (22-30); Chloride 107 mmol/L (98-107); Estimated Creatinine Clearance 106 ml/min; Glucose 74 mg/dl (70-99); Magnesium 1.7 mg/dl (1.6-2.3); Potassium 3.6 mmol/L (3.5-5.1); Sodium 132 mmol/L (135-145); eGFR > 60.00
--- NOTE | 2025-11-06 09:53 | W.PN.HOSP.TC ---
Today's Communication/Plan
-
If patient tolerates diet at lunch, can discharge
For trimester ultrasound pending
Assessment / Plan
Assessment / Plan
35-year-old female who is 9 weeks with past medical history of depression and ectopic presented to the ER with nausea vomiting and diarrhea. She had multiple episodes of vomiting and diarrhea with associated dizziness and
fatigue. Her daughter and had the same symptoms. She came to the ER for further evaluation as it was ongoing and she is 9 weeks . She was noted to have a potassium of 2.9, bicarb of 15, magnesium of 1.3 and calcium of 6.2. She
was admitted and started on IV fluids. Her potassium and calcium was repleted. Pharmacy recommended against repleting magnesium and bicarb. She was provided Reglan for nausea and a single dose of Toradol for abdominal pain. Overnight, she
improved significantly. The next morning her electrolytes were significantly improved.
Non-anion gap metabolic acidosis secondary to dehydration and diarrhea likely due to gastroenteritis
Hypokalemia, hypocalcemia, hypomagnesemia
-- On admission, potassium 2.9, bicarb 15, magnesium 1.3, calcium 6.2 - today improved
-- Replete as needed
-- Stool cultures pending
-- C. difficile and norovirus negative
-- Bicarb and magnesium not given as it is not safe in trimester per pharmacy
-- Advance to low residue diet - if tolerates, can discharge today - OB in agreement
9-week
-- First trimester ultrasound pending
-- Appreciate OB
-- Denies any vaginal bleeding -low clinical concern for spontaneous
Full code
DVT SCD
Anticipated Discharge: Today
Subjective/Interval History
-
Date of Service: November 06, 2025
Improved nausea and vomiting overnight. Still endorses slight abdominal discomfort and cramping. Wants to advance diet.
Objective Data
-
Labs:
Laboratory Results
11/06/25
06:39
WBC 13.8 H
Hgb 11.2 L
Hct 31.7 L
Plt Count 248
Sodium 132 L
Potassium 3.6
Chloride 107
Carbon Dioxide 19 L
BUN 6 L
Creatinine 0.6
Glucose 74
Calcium 8.3 L D
Vital Signs:
Vital Signs
Temp Pulse Resp BP Pulse Ox
97.8 F 78 16 94/48 96
11/06/25 07:45 11/06/25 07:45 11/06/25 07:45 11/06/25 07:45 11/06/25 07:45
I&O
11/05/25 11/06/25 11/07/25
06:59 06:59 06:59
Intake Total 960 / 960
Balance 960 / 960
Review of Systems
-
History Source: Patient
EENT: Reports No Symptoms Reported
Respiratory: Reports No Symptoms
Cardiac: Reports No Symptoms
Abdomen/GI: Reports Abdominal Pain
Genitourinary: Reports No Symptoms and Other (Denies any vaginal bleeding)
Neuro: Reports No Symptoms
Physical Exam
-
General: No Apparent Distress and Comfortable
HEENT: Normocephalic
Respiratory: Clear to Auscultation
Cardiac: Regular Rhythm and S1/S2
GI: Soft, Nondistended, Normal Bowel Sounds and Tender (Slight generalized tenderness)
Musculoskeletal: No Cyanosis and No Edema
Skin: Warm and Dry
Neuro: AO x 3
Psych: Calm
[2025-11-06 10:39] VITALS: BP 107/81
[2025-11-06] MEDS: KCL 20 MEQ PO (11:16)
--- NOTE | 2025-11-06 11:19 | W.DCSUMMARY ---
Documented by User: Ling Fields MD, Resident 11/06/25 15:30
Discharge Summary
Discharge Data
Date of Admission: 11/05/25
Date of Discharge: 11/06/25
-
Pending Results: Yes
Additional Pending Results:
Stool culture
Salmonella/Shigella, Campylobacter, Shiga toxin
Hospital Course
Primary diagnosis:
Metabolic acidosis secondary to diarrhea due to gastroenteritis
Severe dehydration
Hypokalemia
Hypomagnesemia
Hypocalcemia
Secondary diagnosis:
9 weeks
History of prior ectopic
Depression
Hospital course:
35-year-old female who is 9 weeks with past medical history of depression and ectopic presented to the ER with nausea vomiting and diarrhea. She had multiple episodes of vomiting and diarrhea with associated dizziness and
fatigue. Her daughter and had the same symptoms. She came to the ER for further evaluation as it was ongoing and she is 9 weeks . She was noted to have a potassium of 2.9, bicarb of 15, magnesium of 1.3 and calcium of 6.2. She
was admitted and started on IV fluids. Her potassium and calcium was repleted. Pharmacy recommended against repleting magnesium and bicarb. She was provided Reglan for nausea and a single dose of Toradol for abdominal pain. Overnight, she
improved significantly. Her first trimester ultrasound reveal single live intrauterine gestation.
Today, her electrolytes were significantly improved and she tolerated a regular diet. She did have an elevated white blood cell count of 13.8 however clinically improved from yesterday. She is being discharged today with scripts for repeat CBC to
follow her white blood cell count, CMP and mag levels to check her electrolytes in 1 week. She is also being discharged with doxylamine/B6 combination pill for nausea.
Discharge Plan
-
Patient Disposition: Home (Routine Discharge)
Discharge Diagnosis/Procedures: Metabolic acidosis secondary to diarrhea and vomiting from gastroenteritis
Severe dehydration- resolved
Hypokalemia - resolved
Hypomagnesemia - resolved
Hypocalcemia - resolved
Condition: Good
Diet: As tolerated
Activity: As tolerated
Driving Restrictions: As prior to admission
Activity Restrictions/Additional Instructions:
Please take doxylamine - B6 combo up to twice daily for nausea and vomiting.
Please get a repeat CBC, CMP and magnesium level checked in one week and follow up with your PCP to make sure your electrolytes are okay.
Referrals:
Allison Rodriguez CRNP [Family Provider]
Prescriptions:
New
doxylamine-pyridoxine (vit B6) 10-10 mg tablet,delayed release (DR/EC)
1 tab PO BID PRN (Reason: nausea and vomiting ) Qty: 14 0RF
Continued
PNV no.95-ferrous fumarate-FA [] 28 mg iron- 800 mcg Tablet
1 tab PO DAILY
Discharge Orders:
Discharge Patient (As Directed); Ordered 11/06/25
Ordered By: Ling Fields
Discharge Date and Time
Print Language: AZERI

Documented by User: Marsha Gilbert MD 11/06/25 16:31
Discharge Summary
Discharge Data
Date of Admission: 11/05/25
Date of Discharge: 11/06/25
Hospital Course
Primary diagnosis:
Metabolic acidosis secondary to diarrhea due to gastroenteritis
Severe dehydration
Hypokalemia
Hypomagnesemia
Hypocalcemia
Secondary diagnosis:
9 weeks
History of prior ectopic
Depression
Hospital course:
35-year-old female who is 9 weeks with past medical history of depression and ectopic presented to the ER with nausea vomiting and diarrhea. She had multiple episodes of vomiting and diarrhea with associated dizziness and fatigue.
Her daughter and had the same symptoms. She came to the ER for further evaluation as her symptoms were ongoing and she is 9 weeks . She was noted to have a potassium of 2.9, bicarb of 15, magnesium of 1.3 and calcium of 6.2. She
was admitted and started on IV fluids. Her potassium and calcium were repleted. Pharmacy recommended against repleting magnesium and bicarb. She was provided Reglan for nausea and a single dose of Toradol for abdominal pain. Overnight, she
improved significantly. Her first trimester ultrasound reveal single live intrauterine gestation.
On the day of discharge, her electrolytes were significantly improved and she tolerated a regular diet. She did have an elevated white blood cell count of 13.8 which she can check a repeat CBC with her PCP. She can also follow her CMP and Mag level
in 1 week. She was discharged with doxylamine/B6 combination pill PRN for nausea.
Discharge Plan
-
Patient Disposition: Home (Routine Discharge)
Discharge Diagnosis/Procedures: Metabolic acidosis secondary to diarrhea and vomiting from gastroenteritis
Severe dehydration- resolved
Hypokalemia - resolved
Hypomagnesemia - resolved
Hypocalcemia - resolved
Condition: Good
Diet: As tolerated
Activity: As tolerated
Driving Restrictions: As prior to admission
Activity Restrictions/Additional Instructions:
Please take doxylamine - B6 combo up to twice daily for nausea and vomiting.
Please get a repeat CBC, CMP and magnesium level checked in one week and follow up with your PCP to make sure your electrolytes are okay.
Referrals:
Allison Rodriguez CRNP [Family Provider]
Prescriptions:
New
doxylamine-pyridoxine (vit B6) 10-10 mg tablet,delayed release (DR/EC)
1 tab PO BID PRN (Reason: nausea and vomiting ) Qty: 14 0RF
Continued
PNV no.95-ferrous fumarate-FA [] 28 mg iron- 800 mcg Tablet
1 tab PO DAILY
Discharge Orders:
Discharge Patient (As Directed); Ordered 11/06/25
Ordered By: Ling Fields
Discharge Date and Time
Print Language: AZERI
--- NOTE | 2025-11-06 13:03 | W.PN.UPDATE ---
Addendum entered and electronically signed by Marsha Gilbert MD 11/06/25 16:32:
total DC time 40 min
Original Note:
Update Note
Progress Note Update
Discussed case with resident
HPI: 35-year-old female who is 9 weeks with past medical history of depression and ectopic presented to the ER with nausea, vomiting and diarrhea. She had multiple episodes of vomiting and diarrhea with associated dizziness and
fatigue. Her daughter and had the same symptoms. She came to the ER for further evaluation as it was ongoing and she is 9 weeks .
She was noted to have a potassium of 2.9, bicarb of 15, magnesium of 1.3 and calcium of 6.2. She was admitted and started on IV fluids. Her potassium and calcium was repleted. Pharmacy recommended against repleting magnesium and bicarb. She was
provided Reglan for nausea and a single dose of Toradol for abdominal pain. She improved significantly while in the hospital.
A/P:
# Non-anion gap metabolic acidosis secondary to GI loss/diarrhea likely due to acute viral gastroenteritis
# Hypokalemia, hypocalcemia, hypomagnesemia
repleted potassium, magnesium, and calcium with improved electrolyte levels
C. difficile and norovirus negative
Stool cultures pending, can follow-up outpatient
Advance to regular diet and if tolerates, can discharge to follow up with OB outpatient.
# 9-week
Denies any vaginal bleeding
First trimester ultrasound pending, if unable to obtain this admission, patient can follow-up outpatient for ultrasound
Full code
DVT SCD
discussed with at bedside
[2025-11-06 15:42] VITALS: BP 91/54
--- NOTE | 2025-11-06 15:49 | CM ---
Initial assessment completed with ot.
Pt is a 35yr old admitted with Gastroenteritis. Pt is also 9weeks .
At baseline, pt lives with her and their young daughter in a multi level home
Pt is indep and working at baseline.
Pt is OBS and letter was reviewed verbally with pt prior to her dc to home with no needs identified.
== END 2025-11-06 16:23 | disposition home or self-care (01) ==
LOC: 3 WEST ACU 13:23
PROVIDERS: Registered Nurse; ADMITTING PHYSICIAN Hospitalist; ATTENDING PHYSICIAN Internal Medicine; CONSULT PHYSICIAN Obstetrics & Gynecology; EMERGENCY PHYSICIAN Emergency Medicine; FAMILY PHYSICIAN Nurse Practitioner Primary Care
DX: O99.281 Endocrine, nutritional and metabolic diseases complicating pregnancy, first trimester (principal); O26.891 Other specified pregnancy related conditions, first trimester; E83.51 Hypocalcemia; E87.6 Hypokalemia; E87.20 Acidosis, unspecified; E83.42 Hypomagnesemia; A08.4 Viral intestinal infection, unspecified; E86.0 Dehydration; F32.A Depression, unspecified; G47.00 Insomnia, unspecified; Z3A.09 9 weeks gestation of pregnancy
CPT/HCPCS: 76801; 80048; 80053; 81003; 81015; 83690; 83735; 85025; 85027; 87045; 87046; 87077; 87324; 87427; 87449; 87798; 89055; 93005; 96361; 96365; 96375; 99284; G0378